=== PATIENT | male | born 1975 | race Caucasian/White ===

== ENCOUNTER 2020-03-18 23:07 | Emergency (ER) | payer OTHER, SELFPAY ==
--- NOTE | ~2020-03-18 | CT_ITS ---
EXAMINATION: CT abdomen pelvis w con DATE: 03/19/2020 01:01 INDICATION: Abdominal pain. TECHNIQUE: Computed tomography (CT) of the abdomen and pelvis was performed with 100 mL Omnipaque-350 intravenous contrast. Automated exposure control and iterative reconstruction technique were employe d. The dose-length product was 994.06 mGy-cm. COMPARISON: None FINDINGS: Lung bases are clear. Heart size is normal. No pericardial or pleural effusion. Multiple small calcif ied gallstones in the decompressed normal-appearing gallbladder. Millimeters low-attenuation likely c yst in the right hepatic lobe. Spleen, pancreas, bilateral adrenal glands and left kidney are normal. Mild right hydronephrosis with delayed right nephrogram with perinephric stranding extending along t he right ureter to the bladder. No obstructing stones identified. There is thickened and enhancing ur othelium at the mid right ureter. Bowels including the appendix are normal. No free intraperitoneal g as or fluid. No pathologically enlarged abdominal or pelvic lymphadenopathy. Small fat-containing umb ilical hernia. Mild scattered degenerative skeletal changes in the spine and at both hips. IMPRESSION: 1. Mild right hydronephrosis with periureteral stranding and enhancing urothelial thickening in the m id right ureter but without evident obstructing stone. This could be related to recently passed stone although malignancy and/or ascending urinary tract infection cannot be excluded. Correlate with urin alysis and consider either follow-up imaging to document resolution or further evaluation with ureter oscopy as clinically indicated. 2. Cholelithiasis. Reviewed, dictated and finalized at location [facility]. IMPRESSION: 1. Mild right hydronephrosis with periureteral stranding and enhancing urotheli al thickening in the mid right ureter but without evident obstructing stone. Th is could be related to recently passed stone although malignancy and/or ascendi ng urinary tract infection cannot be excluded. Correlate with urinalysis and co nsider either follow-up imaging to document resolution or further evaluation wi ureteroscopy as clinically indicated. 2. Cholelithiasis.
[2020-03-18 23:10] VITALS: BP 152/86; PULSE 69; RESP 18; TEMP 36.3; O2SAT 100
[2020-03-18 23:56] LABS: Basophils Absolute Auto 0.1 K/mm3 (0.0-0.1); Basophils Percent Auto 0.4 % (0.2-1.2); Eosinophils Absolute Auto 0.2 K/mm3 (0-0.3); Hematocrit 45.2 % (42.0-52.0); Hemoglobin 15.3 g/dL (14.0-18.0); Immature Granulocyte Absolute 0.05 K/mm3 (0.00-0.031); Immature Granulocyte Percent A 0.3 % (0-0.5); Lymphocytes Absolute Auto 2.17 K/mm3 (0.9-3.2); Lymphocytes Percent Auto 14.2 % (18.3-44.2); Mean Corpuscular HGB Conc 33.8 g/dl (32-36); Mean Corpuscular Hemoglobin 30.8 pg (26-34); Mean Corpuscular Volume 91.1 fl (80-100); Mean Platelet Volume 10.1 fl (7.4-10.4); Monocytes Absolute Auto 1.6 K/mm3 (0.1-0.6); Monocytes Percent Auto 10.7 % (2.6-8.5); Neutrophils Absolute Auto 11.2 K/mm3 (1.3-6.7); Neutrophils Percent Auto 73.4 % (45.5-73.1); Platelet Count Result 284 k/mm3 (150-375); Red Blood Count 4.96 M/mm3 (4.6-6.20); Red Cell Distribution Width 11.9 % (11.5-14.5); White Blood Count 15.3 K/mm3 (4.5-10.0)
[2020-03-18 23:58] LABS: Add Urine Microscopic? NO; Appearance Urine Clear (Clear); Bilirubin Urine Negative (Negative); Blood Urine Negative (Negative); Color Urine Yellow (Yellow); Glucose Urine UA Negative (Negative); Ketones Urine Negative (Negative); Leukocyte Esterase Ur Negative LEU/UL (Negative); Nitrate Urine Negative (Negative); Protein Urine Negative (Negative); Specific Grav Ur 1.014 (1.001-1.035); Urobilinogen Urine Negative mg/dL (<2.0)
[2020-03-19 00:19] LABS: Alanine Aminotransferase 36 U/L (4-50); Albumin Level 4.5 g/dL (3.5-5.1); Alkaline Phosphatase 129 U/L (38-126); Aspartate Amino Transferase 34 U/L (17-59); Bilirubin,Total 0.3 mg/dL (0.2-1.3); Blood Urea Nitrogen 18 mg/dL (9-20); Calcium 9.5 mg/dL (8.4-10.2); Carbon Dioxide 31 mmol/L (22-30); Chloride 101 mmol/L (98-107); Estimated CRCL calculation 87 ml/min; Estimated Glomerular Filt Rate > 60; Glucose 111 mg/dL (75-110); Lipase 67 U/L (23-300); Potassium 3.8 mmol/L (3.4-5.0); Sodium 139 mmol/L (137-145)
--- NOTE | 2020-03-19 00:47 | ED.GENADULT ---
HPI - General Adult General Chief complaint: Back Pain/Injury Stated complaint: right flank pain Time Seen by Provider: 03/19/20 00:40 History of Present Illness HPI narrative: Patient presents with his for 3 weeks of right-sided flank pain. Started in his right back moved to the right flank and radiates down into the groin. He has no history of kidney stones. The pain tonight was severe 9 out of 10, and he was having chills. He had nausea for the first time tonight, but no vomiting. The pain has receded and now is only a 2 out of 10. He has a history of hypercholesterolemia. His surgeries include circumcision wisdom tooth extraction and vasectomy. He does not smoke, but he does drink alcohol. 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 Related Data Home Medications Medication Instructions Recorded Confirmed bupropion HCl 150 mg PO DAILY 03/18/20 03/18/20 pravastatin 40 mg PO DAILY 03/18/20 03/18/20 Allergies Allergy/AdvReac Type Severity Reaction Status Date / Time No Known Allergies Allergy Verified 03/18/20 23:16 Review of Systems Review of Systems: Narrative: CONSTITUTIONAL: Denies fever, chills, or sweats. EYES: Denies visual changes, redness, or discharge. ENT: Denies rhinorrhea, congestion, sore throat, or otalgia. CARDIOVASCULAR: Denies chest pain, palpitations, or edema. RESPIRATORY: Denies cough or dyspnea. GASTROINTESTINAL: He has abdominal pain, nausea, but not vomiting, or diarrhea. GENITOURINARY: Denies dysuria or hematuria. SKIN: Denies rash or itching. MUSCULOSKELETAL: Denies back pain, joint pain, or myalgia. NEUROLOGIC: Denies headache, numbness, or weakness. PSYCHIATRIC: Denies anxiety or depression. PMFSH Surgical History Surgical History (Updated 03/19/20 @ 00:50 by Marely Rodriguez MD) History of circumcision History of vasectomy History of wisdom tooth extraction Social History Social History (Updated 03/19/20 @ 00:50 by Marely Rodriguez MD) Alcohol intake: current Gender identity (if verbalized by the patient): Male Exam Narrative: Exam Narrative: GENERAL: Well-appearing, well-nourished, and in no acute distress. Bilateral ear piercing, multiple tattoos HEAD: Normocephalic, atraumatic. EYES: PERRLA and EOMI. ENT: Nares clear, no rhinorrhea or epistaxis. Mucous membranes moist. NECK: Supple. CHEST: Clear to auscultation. No respiratory distress. HEART: Regular rate and rhythm. No murmur heard. Normal peripheral pulses. ABDOMEN: Soft, nontender, nondistended, normal active bowel sounds. EXTREMITIES: Normal range of motion. No edema. SKIN: Warm, dry, no rash. NEURO: No focal deficits. Alert and oriented x3. PSYCH: Normal mood and affect. Course Reevaluation(s) Reevaluation #1: Went in to check on the patient and discussed the CT findings with the patient and his . His pain is resolved. Told him that he has gallstones, and a swollen ureter, and needs follow-up with a urologist. He agrees to take antibiotics for 10 days. Date: 03/19/20 Time: 01:40 Vital Signs Vital signs: Vital Signs Temperature 97.4 F L 03/18/20 23:10 Pulse Rate 69 03/18/20 23:10 Respiratory Rate 18 03/18/20 23:10 Blood Pressure 152/86 H 03/18/20 23:10 Pulse Oximetry 100 03/18/20 23:10 Temperature 97.4 F L 03/18/20 23:10 Pulse Rate 69 03/18/20 23:10 Respiratory Rate 18 03/18/20 23:10 Blood Pressure 152/86 H 03/18/20 23:10 Pulse Oximetry 100 03/18/20 23:10 Medical Decision Making Medical Records Medical records reviewed: Yes I reviewed the patient's medical records. Vital Signs Vital Signs: Vital Signs Temperature 97.4 F L 03/18/20 23:10 Pulse Rate 69 03/18/20 23:10 Respiratory Rate 18 03/18/20 23:10 Blood Pressure 152/86 H 03/18/20 23:10 Pulse Oximetry 100 03/18/20 23:10 Temperature 97.4 F L 03/18/20 23:10 Pulse Rate 69 03/18/20 23:10 Respiratory Rate 18 03/18/20 23:10 Blood Pressure 152/86 H 03/18/20 23:10 Pulse Oximetry
[2020-03-19] MEDS: SODIUM CHLORIDE 0.9% IV 1,000 ML 999 ML IV CONT (01:13)
[2020-03-19 02:04] VITALS: BP 148/72; PULSE 89; RESP 14; O2SAT 97
== END 2020-03-19 02:23 | disposition home or self-care (01) ==
PROVIDERS: Emergency Provider Emergency Medicine
DX: N13.4 Hydroureter (principal); K80.20 Calculus of gallbladder without cholecystitis without obstruction
CPT/HCPCS: 36415; 74177; 80053; 81003; 83690; 85025; 96374; 99284; J0696; J7030; Q9967

== ENCOUNTER 2021-06-15 10:07 | Emergency (ER) | payer OTHER, SELFPAY ==
[2021-06-15 10:19] VITALS: BP 120/77; PULSE 81; RESP 16; TEMP 35.9; O2SAT 100
--- NOTE | 2021-06-15 11:33 | ED.MALEGU ---
HPI - Male Genitourinary General Chief complaint: Urogenital-Male Stated complaint: Nausea Source: patient and RN notes reviewed Limitations: no limitations History of Present Illness HPI Narrative: The vaccinated patient, who has prior history of presumed stone, presents with right flank pain. He notes a short 1 day overnight history of nausea, vomiting x 1-2 associated with right radiating pain to his right groin. Symptoms have improved he would like to go to work. 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 Patient declines same-day hospital referral as he is better Last year had a prior noncontributory chemistries [ALP = 130] , and CT showing 1. Mild right hydronephrosis with periureteral stranding and enhancing urothelial thickening in the mid right ureter but without evident obstructing stone. This could be related to recently passed stone although malignancy and/or ascending urinary tract infection cannot be excluded. 2. Cholelithiasis. Related Data Home Medications Medication Instructions Recorded Confirmed bupropion HCl 150 mg PO DAILY 03/18/20 03/18/20 pravastatin 40 mg PO DAILY 03/18/20 03/18/20 Allergies Allergy/AdvReac Type Severity Reaction Status Date / Time No Known Allergies Allergy Verified 03/18/20 23:16 Review of Systems Review of Systems: General/Constitutional: No weight loss,fever Eyes: N0: Redness,discharge Ears/Nose/Throat: No: Epistaxis,ear discharge Respiratory: Denies: Hemoptysis Gastrointestinal: Bleeding-rectal , reports self-limited vomiting Skin: No Lumps, eruption Neurologic: No Focal Weakness,Sz Hematologic: Denies: Petechiae/Purpura Psychiatric: No: Suicida ideationl All Other Systems: Reviewed and Negative [facility] Surgical History Surgical History (Updated 03/19/20 @ 00:50 by Marely Rodriguez MD) History of circumcision History of vasectomy History of wisdom tooth extraction Social History Social History (Updated 03/19/20 @ 00:50 by Marely Rodriguez MD) Alcohol intake: current Gender identity (if verbalized by the patient): Male Comments At time of signature, agree with nursing past medical, surgical, social and family history. There is no relevant family history pertinent to the presenting complaint Exam Narrative: General Appearance: Well appearing, No distress Nose: Normal nose Mouth/Throat: Normal appearing, Normal lips, Supple Respiratory: Airway patent, No respiratory distress Cardiovascular: RRR Abdomen: Soft, Non-tender, No massess, No organomegaly (no rebound/ surgical signs), Hyperactive bowel sounds Musculoskeletal: Full ROM Skin: Warm, Dry Neurological: A&O x3, CN II-X intact Psychiatric: Normal mood, Normal affect Course Vital Signs Vital signs: Vital Signs Temperature 96.7 F L 06/15/21 10:19 Pulse Rate 81 06/15/21 10:19 Respiratory Rate 16 06/15/21 10:19 Blood Pressure 120/77 06/15/21 10:19 Pulse Oximetry 100 06/15/21 10:19 Temperature 96.7 F L 06/15/21 10:19 Pulse Rate 81 06/15/21 10:19 Respiratory Rate 16 06/15/21 10:19 Blood Pressure 120/77 06/15/21 10:19 Pulse Oximetry 100 06/15/21 10:19 MDM - Male Genitourinary Lab Data Labs: Urine Glucose Negative Reference Range: Negative Urine Bilirubin Negative Reference Range: Negative Urine Ketone Negative Reference Range: Negative Urine Specific [place] 1.030 Reference Range:1.001-1.035 Urine Blood 1+ Reference Range: Negative * * Urine pH 6.0
== END 2021-06-15 11:40 | disposition home or self-care (01) ==
PROVIDERS: Emergency Provider Emergency Medicine
DX: R31.29 Other microscopic hematuria (principal); Z87.442 Personal history of urinary calculi; Z98.52 Vasectomy status
CPT/HCPCS: 81003; 99213; G0463

== ENCOUNTER → 2021-11-03 10:41 | Outpatient (CLI) | payer OTHER, SELFPAY ==
--- NOTE | ~2021-11-03 | US_ITS ---
US soft tissue LE RT DATE: 11/03/2021 11:08 INDICATION: Posterior right knee mass TECHNIQUE: Real-time imaging and color flow imaging of posterior right knee soft tissues COMPARISON: None FINDINGS: There is a 3 x 6.8 x 3.8 cm sonolucency without internal echoes or vascularity at the poste rior aspect of the right knee consistent with Villegas's cyst. IMPRESSION: Villegas's cyst Reviewed, dictated and finalized at [facility]. 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
== END ==
DX: M71.21 Synovial cyst of popliteal space [Baker], right knee (principal)
CPT/HCPCS: 76882

== ENCOUNTER → 2021-11-25 06:57 | Outpatient (CLI) | payer OTHER, SELFPAY ==
--- NOTE | ~2021-11-25 | MR_ITS ---
EXAMINATION: MR knee RT wo con DATE: 11/25/2021 07:36 INDICATION: Right knee pain TECHNIQUE: Magnetic resonance imaging (MRI) of the right knee was performed without intravenous contr ast. Sequences included coronal PD-weighted FSE, coronal PD-weighted FS FSE, sagittal T2-weighted FS E, sagittal PD-weighted FS FSE and axial PD weighted fat saturated FSE. COMPARISON: None. FINDINGS: Medial compartment: Medial meniscus is normal. Articular cartilage is normal. Lateral compartment: Lateral meniscus is normal. Articular cartilage is normal. Patellofemoral compartment: Small region of shallow chondral ulceration and deeper fissuring along the inferior most aspect of th e medial trochlea with tiny focus of underlying subarticular increased marrow signal. Remaining carti sharad in the patellofemoral compartment is normal. Ligaments and tendons: Anterior and posterior cruciate ligaments are normal. The medial collateral ligament and fibular wero ateral ligament complex are normal. The extensor mechanism is normal. The visualized medial and later al hamstring tendons as well as the iliotibial band are normal. Fluid: Physiologic amount of fluid in the joint space. No loose osteochondral bodies identified. Villegas's cys t with small deeper component measuring 1.6 x 0.7 x 0.4 cm between the medial head of the gastrocnemi us and the distal semimembranosus tendon. There appears to be a thin neck connecting to a larger more medial and superficial component along the posterior margin of the medial head of the gastrocnemius and which measures 6.7 x 3.1 x 3.7 cm. Osseous/other: Bone alignment is normal. No fracture or abnormal marrow replacing process. IMPRESSION: 1. Villegas's cyst with small deeper component and 6.7 x 3.7 x 3.1 cm more superficial component. 2. 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 Villegas's cyst with small deeper component and 6.7 x 3.7 x 3.1 cm more superfi cial component. 2. 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
== END ==
PROVIDERS: Visit Provider Nurse Practitioner Family
DX: M25.561 Pain in right knee (principal); M71.21 Synovial cyst of popliteal space [Baker], right knee
CPT/HCPCS: 73721

== ENCOUNTER 2022-08-27 15:25 | Emergency (ER) | payer OTHER, SELFPAY ==
[2022-08-27 15:35] VITALS: BP 138/87; PULSE 89; RESP 16; TEMP 36.2; O2SAT 99
[2022-08-27 15:51] LABS: Basophils Percent Auto 0.2 % (0.2-1.2); Eosinophils Absolute Auto 0.1 K/mm3 (0-0.3); Eosinophils Percent Auto 0.3 % (0-4.4); Hematocrit 45.8 % (42.0-52.0); Hemoglobin 15.7 g/dL (14.0-18.0); Immature Granulocyte Absolute 0.09 K/mm3 (0.00-0.031); Immature Granulocyte Percent A 0.5 % (0-0.5); Lymphocytes Absolute Auto 1.62 K/mm3 (0.9-3.2); Lymphocytes Percent Auto 8.6 % (18.3-44.2); Mean Corpuscular HGB Conc 34.3 g/dl (32-36); Mean Corpuscular Hemoglobin 31.4 pg (26-34); Mean Corpuscular Volume 91.6 fl (80-100); Mean Platelet Volume 9.5 fl (7.4-10.4); Monocytes Absolute Auto 1.2 K/mm3 (0.1-0.6); Monocytes Percent Auto 6.4 % (2.6-8.5); Neutrophils Absolute Auto 15.9 K/mm3 (1.3-6.7); Platelet Count Result 350 k/mm3 (150-375); Red Cell Distribution Width 11.7 % (11.5-14.5); White Blood Count 18.9 K/mm3 (4.5-10.0)
[2022-08-27 16:03] LABS: Appearance Urine Clear (Clear); Bilirubin Urine Negative (Negative); Blood Urine Trace-intact (Negative); Color Urine Yellow (Yellow); Glucose Urine UA Negative (Negative); Ketones Urine Negative (Negative); Leukocyte Esterase Ur Negative LEU/UL (Negative); Nitrate Urine Negative (Negative); Protein Urine Trace mg/dL (Negative)
[2022-08-27 16:04] LABS: Alanine Aminotransferase 42 U/L (6-50); Albumin Level 4.4 g/dL (3.5-5.1); Alkaline Phosphatase 115 U/L (38-126); Anion Gap 7 mmol/L (8-16); Aspartate Amino Transferase 38 U/L (17-59); Bilirubin,Total 0.8 mg/dL (0.2-1.3); Blood Urea Nitrogen 17 mg/dL (9-20); Carbon Dioxide 28 mmol/L (22-30); Chloride 103 mmol/L (98-107); Estimated CRCL calculation 74 ml/min; Estimated Glomerular Filt Rate 60; Glucose 163 mg/dL (65-110); Potassium 3.9 mmol/L (3.4-5.0); Sodium 138 mmol/L (137-145)
[2022-08-27 16:05] LABS: Bacteria Urine Trace /hpf; Squamous Epithelial Cell Urine Rare /hpf (Few); WBC Urine 0-3 /hpf
[2022-08-27 16:07] LABS: Add Urine Microscopic? YES
== END 2022-08-27 22:19 | disposition left against medical advice (07) ==
LOC: ANHED 22:17
PROVIDERS: Emergency Provider Emergency Medicine
DX: N50.812 Left testicular pain (principal)
CPT/HCPCS: 36415; 80053; 81001; 85025; 99199